=== PATIENT | male | born 1960 | race African-American/Black ===

== ENCOUNTER 2017-05-01 06:14 | Emergency (ER) | payer MEDICARE, OTHER ==
[~2017-05-01] VITALS: Ht 180.3 cm; Wt 61.7 kg
[2017-05-01 06:15] VITALS: BP 112/69
[2017-05-01] MEDS ORDERED: KETOROLAC 30 MG/1 ML IM ONE (07:00)
[2017-05-01] MEDS ORDERED: KETOROLAC 30 MG/1 ML ONE (07:11)
== END 2017-05-01 08:48 | disposition home or self-care (01) ==
LOC: ED 08:30
DX: M25.512 Pain in left shoulder (principal); M79.622 Pain in left upper arm; M25.522 Pain in left elbow
CPT/HCPCS: 93005; 96372; 99283; J1885

== ENCOUNTER 2017-05-02 01:43 | Emergency (ER) | payer OTHER ==
[~2017-05-02] VITALS: Ht 180.3 cm; Wt 62.1 kg
[2017-05-02 03:10] VITALS: BP 182/102
== END 2017-05-02 04:05 | disposition home or self-care (01) ==
LOC: ED 02:02
DX: M79.622 Pain in left upper arm (principal); I10 Essential (primary) hypertension
CPT/HCPCS: 93005; 99283

== ENCOUNTER 2019-11-21 16:34 | Emergency (ER) | payer OTHER ==
[~2019-11-21] VITALS: Ht 180.3 cm; Wt 59.0 kg
[2019-11-21 16:49] VITALS: BP 128/77
[2019-11-21] MEDS ORDERED: HYDROcodone/APAP 5/325 TABLET PO ONE (17:17)
[2019-11-21] MEDS ORDERED: HYDROcodone/APAP 5/325 TABLET ONE (17:18)
== END 2019-11-21 19:11 | disposition home or self-care (01) ==
LOC: ED 17:45
DX: T23.501A Corrosion of first degree of right hand, unspecified site, initial encounter (principal); I10 Essential (primary) hypertension; F17.200 Nicotine dependence, unspecified, uncomplicated; X08.8XXA Exposure to other specified smoke, fire and flames, initial encounter; Y93.89 Activity, other specified; Y92.69 Other specified industrial and construction area as the place of occurrence of the external cause; Y99.8 Other external cause status
CPT/HCPCS: 99283

== ENCOUNTER 2019-11-23 10:03 | Emergency (ER) | payer OTHER ==
[~2019-11-23] VITALS: Ht 180.3 cm; Wt 58.9 kg
[2019-11-23 10:17] VITALS: BP 139/91
--- NOTE | 2019-11-23 10:22 | NUR ---
PT HERE FOR FOLLOW UP FORM CHEMICAL EXPOSURE AT WORK. SEEN INITIALLY ON 11/21 FOR WOUNDS IN BETWEEN FINGERS.
--- NOTE | 2019-11-23 10:48 | NUR ---
WOUNDS DRESSED BY THIS RN.
[2019-11-23] MEDS ORDERED: OXYcodone/APAP 5/325MG TABLET ONE (10:51)
--- NOTE | 2019-11-23 10:53 | NUR ---
PT MEDICATED PER ORDERS.
[2019-11-23] MEDS ORDERED: OXYcodone/APAP 5/325MG TABLET PO ONE (11:00)
--- NOTE | 2019-11-23 11:02 | NUR ---
Patient/Caregiver given discharge instructions and they have confirmed that they understand the instructions. Patient ambulatory with steady gait.
== END 2019-11-23 11:22 | disposition home or self-care (01) ==
LOC: ED 10:30
DX: T23.201A Burn of second degree of right hand, unspecified site, initial encounter (principal); T23.202A Burn of second degree of left hand, unspecified site, initial encounter; T31.0 Burns involving less than 10% of body surface; I10 Essential (primary) hypertension; X08.8XXA Exposure to other specified smoke, fire and flames, initial encounter; Y93.89 Activity, other specified; Y92.89 Other specified places as the place of occurrence of the external cause; Y99.8 Other external cause status
CPT/HCPCS: 99283

== ENCOUNTER 2019-11-26 13:57 | Emergency (ER) | payer SELFPAY ==
--- NOTE | 2019-11-26 14:34 | NUR ---
BREAK ICT ANALYST: PER TRIAGE NURSE PT OPTED TO LEAVE. PT REFUSED TO BE TRIAGE.
== END 2019-11-26 14:36 | disposition left against medical advice (07) ==
LOC: ED 14:30
DX: R68.89 Other general symptoms and signs (principal); Z53.21 Procedure and treatment not carried out due to patient leaving prior to being seen by health care provider

== ENCOUNTER 2019-12-10 10:28 | Emergency (ER) | payer OTHER ==
[~2019-12-10] VITALS: Ht 180.3 cm; Wt 58.0 kg
[2019-12-10 10:35] VITALS: BP 136/79
--- NOTE | 2019-12-10 11:12 | NUR ---
FROM LOBBY TO ROOM AT THIS TIME, PT CHANGING INTO GOWN
[2019-12-10] MEDS ORDERED: CEPHALEXIN 500 MG CAPSULE ONE (11:43)
[2019-12-10] MEDS ORDERED: SULFAMETH./TRIMETHOPRIM DS 800MG/160MG TABLET ONE (11:43)
--- NOTE | 2019-12-10 11:46 | NUR ---
PT MEDICATED PER MAR
[2019-12-10] MEDS ORDERED: SULFAMETH./TRIMETHOPRIM DS 800MG/160MG TABLET PO ONE (12:00)
[2019-12-10] MEDS ORDERED: CEPHALEXIN 500 MG CAPSULE PO SCH (12:00)
== END 2019-12-10 11:58 | disposition home or self-care (01) ==
LOC: ED 11:40
DX: L02.214 Cutaneous abscess of groin (principal); I10 Essential (primary) hypertension; F17.200 Nicotine dependence, unspecified, uncomplicated
CPT/HCPCS: 99283